=== PATIENT | male | born 1965 | race Caucasian/White ===

== ENCOUNTER → 2022-01-12 11:23 | Outpatient (BNVA) | payer OTHER, SELFPAY | PROVIDERS: PCP Nurse Practitioner Primary Care; Referring Provider Nurse Practitioner Primary Care; Visit Provider Physician Assistant | DX: Z13.89 Encounter for screening for other disorder (principal) ==

== ENCOUNTER 2022-01-12 12:10 | Outpatient (REF) | payer OTHER, SELFPAY ==
[2022-01-12 13:31] LABS: MANUAL DIFF FLAG NO
[2022-01-12 13:38] LABS: Basophils Absolute Auto 0.1 X10*3/uL (0.0-0.2); Basophils Percent Auto 0.7 % (0-2); Eosinophils Absolute Auto 0.6 X10*3/uL (0.0-0.4); Eosinophils Percent Auto 7.1 % (0-4); Hematocrit 47.3 % (42.0-52.0); Hemoglobin 15.3 g/dl (14.0-18.0); Imm Gran Abs Auto 0.03 X10*3/uL (0.00-0.03); Imm Gran Pct Auto 0.3 % (0.0-0.4); Lymphocytes Absolute Auto 2.6 X10*3/uL (1.2-4.9); Lymphocytes Percent Auto 29.9 % (20-40); Mean Corpuscular HGB Conc 32.3 g/dl (31.0-36.0); Mean Corpuscular Hemoglobin 28.6 pg (27.0-33.0); Mean Corpuscular Volume 88.4 fL (80.0-98.0); Mean Platelet Volume 10.4 fL (9.4-12.4); Monocytes Absolute Auto 0.6 X10*3/uL (0.1-1.2); Monocytes Percent Auto 7.4 % (2-11); Neutrophils Absolute Auto 4.7 x10*3/uL (2.0-8.3); Neutrophils Percent Auto 54.6 % (45-73); Platelet Count 228 X10*3/uL (160-400); Red Blood Count 5.35 X10*6/uL (4.60-5.80); Red Cell Distribution Width 12.7 % (11.0-16.0); White Blood Count 8.7 X10*3/uL (4.8-10.8)
[2022-01-12 14:15] LABS: Alanine Aminotransferase 70 U/L (0-40); Alkaline Phosphatase 86 U/L (39-117); Anion Gap 11 (12-20); Aspartate Amino Transferase 39 U/L (5-37); Bilirubin Total 0.3 mg/dL (0.0-1.0); Blood Urea Nitrogen 13 mg/dL (9-16); Calcium 9.2 mg/dL (8.4-10.2); Carbon Dioxide 25 mmol/L (22-29); Chloride 108 mmol/L (96-108); Estimated Glomerular Filt Rate > 60; Glucose Random 122 mg/dL (60-115); Potassium 4.4 mmol/L (3.3-5.1); Sodium 140 mmol/L (135-145); Total Protein 6.9 g/dL (6.5-8.0)
[2022-01-12 14:25] LABS: Thyroid Stimulating Hormone 2.27 uIU/mL (0.32-4.0)
[2022-01-14 18:01] LABS: Transglutaminase IgA <1.0 U/mL
[2022-01-16 14:27] LABS: Endomysial IgA Antibody Negative (Negative)
== END 2022-01-12 12:11 | disposition home or self-care (01) ==
LOC: HO.WFDLDS 12:10
PROVIDERS: Visit Provider Physician Assistant
DX: K62.5 Hemorrhage of anus and rectum (principal); R19.5 Other fecal abnormalities; K52.9 Noninfective gastroenteritis and colitis, unspecified; K59.09 Other constipation; Z98.890 Other specified postprocedural states
CPT/HCPCS: 36415; 80053; 84443; 85025; 86231; 86364

== ENCOUNTER 2022-05-13 11:05 | Day surgery (SDC) | payer OTHER, SELFPAY ==
[2022-05-07 11:41] VITALS: BMI 32.5
[2022-05-10 14:22] VITALS: BMI 33.1
--- NOTE | 2022-05-13 11:31 | P.HPSUR_ITS ---
Pre-Procedural Eval Section A Date of Service: 05/13/22 Section B Chief Complaint: abnormal bowel habit Relevant Family History (Specify if Yes): No Relevant Social History: None Present Medications: see Short Stay Collaborative assessment Medical History: Significant History (Heartburn Hypertension TERRENCE on CPAP Pre- diabetes) History of Previous Operations: Relevant previous surgery/procedure and date(s) (Hx of colonoscopy Hx of mitral valve replacement) Allergies: Allergies Allergy/AdvReac Type Severity Reaction Status Date / Time Penicillins Allergy Unknown Rash Verified 05/10/22 14:22 Review of Systems Sugical H&P ROS: Negative: Constitution, Cardiovascular, Respiratory, Neurological, Psychiatric, Hem-Onc, Allergic/Immunologic, Gastrointestinal, Genitourinary, Musculoskeletal, Integumentary, Endocrine and Eyes/Ears/Nose/Throat Exam Surgical H&P Exam: Normal: HEENT, Normal: Heart, Normal: Lungs, Normal: Extremities, Normal: Abdomen, Normal: Skin and Normal: Neurological Plan Diagnosis/Plan: Unchanged I have reviewed the history and physical and performed a pertinent physical examination on my patient. No changes have occurred unless specified.
[2022-05-13 11:46] VITALS: BP 147/88; PULSE 74; RESP 16; TEMP 36.1; O2SAT 98
[2022-05-13] MEDS: Lactated Ringers 1,000 ML 50 ML IVCONT (11:46)
--- NOTE | 2022-05-13 12:05 | P.CONAN_ITS ---
HPI - Anesthesia Eval Consult details Narrative: 56 M for colonoscopy Aortic valve replaced 7 years ago . optimized as per cardiology TERRENCE on CPAP [facility] Active Problems Active Problems: All Active Problems (Updated 05/10/22 @ 14:21 by Comfort Joe RN) History of colonic polyps (Acute) Change in consistency of stool (Acute) History of colonoscopy (Acute) Rectal bleeding (Acute) Sleep apnea (Acute) Elevated liver enzymes (Acute) Past Medical History Medical History Heartburn Hypertension TERRENCE on CPAP Pre-diabetes Family History Family History Father COPD (chronic obstructive pulmonary disease) Mother COPD (chronic obstructive pulmonary disease) Paternal Grandfather Heart disease Paternal Grandmother Heart disease Family/Other Colon cancer Family history of problems with anesthesia: No Surgical History Surgical History Hx of colonoscopy Hx of mitral valve replacement History of Problems with Anesthesia: No Social History Social History (Updated 01/11/22 @ 11:15 by Korina Lanza) Household Members: Family Alcohol intake: current Alcohol intake frequency: holidays/special occasions only Patient Tobacco Use Status: Never used Tobacco Meds Allergies Allergy/AdvReac Type Severity Reaction Status Date / Time Penicillins Allergy Unknown Rash Verified 05/10/22 14:22 Active Medications: Current Medications Albuterol Sulfate (Albuterol Sulfate (0.083%) 2.5 Mg/3 Ml Vial.Neb) 2.5 mg INHALE ONCE PRN PRN Reason: Shortness of Breath/Wheezing Lactated Ringer's (Lr) 1,000 mls @ 50 mls/hr IVCONT .Q20H JACE Last Admin: 05/13/22 11:46 Dose: 50 mls/hr Home Medications Medication Instructions Recorded Confirmed Last Taken Type amlodipine 10 mg tablet 10 mg PO DAILY 01/12/22 05/10/22 Unknown History aspirin 81 mg tablet,delayed 81 mg PO DAILY 01/12/22 05/13/22 05/12/22 History release (Adult Low Dose Aspirin) metoprolol succinate 100 mg 100 mg PO DAILY 01/12/22 05/10/22 Unknown History tablet,extended release 24 hr Exam Exam Date and Time: May 13, 2022 1205 Height,Weight and Vital Signs: Height 6 ft 3 in Weight 120.202 kg Last Vital Signs Temp 97 F 05/13/22 11:46 Pulse 74 05/13/22 11:46 Resp 16 05/13/22 11:46 BP 147/88 H 05/13/22 11:46 Pulse Ox 98 05/13/22 11:46 O2 Del Method 05/13/22 11:46 Airway Mallampati Class: IV TM Dist: >3cm Neck ROM: Full Loose/Missing/Broken Teeth: Yes Heart: S1,S2 Lungs: b/l breath sounds Assessment and Plan Assessment Anesthesia Assessment: Anesthesia Plan Discussed and Chart Reviewed Final Anesthetic Review Family History of Problems with Anesthesia: No History of Problems with Anesthesia: No NPO: Yes ASA Class: III Final Preanesthetic Review: Meds/Allgs Chart Reviewed, Consent Obtained/Reviewed and Anes Risks/Benef Reviewed Patient Risk: Intermediate Procedure Risk: Intermediate Anesthetic Plan Anesthetic Plan: MAC: Disposition: Standard PACU
--- NOTE | 2022-05-13 13:06 | W.PM.OPN ---
Operative Note Operative Note Date of Service: 05/13/22 Narrative: Operative Information Procedure Description: Colonoscopy Indication: abn bowel habits Anesthesia: MAC COLONOSCOPY Instrument: Olympus variable stiffness adult scope 190L Colonoscopy Monitoring: Vital signs and clinical assessment, continuous EKG monitoring, Pulse oximetry, Carbon Dioxide monitoring and blood pressure monitoring were done throughout the procedure. Colon withdrawal time was 10 minutes. Procedure: The patient was placed in the left lateral decubitis position and pre-procedure medications were administered. After a digital rectal examination of the ano-rectum, the video colonoscope was inserted into the rectum and advanced through the colon to the cecum/TI. The colonoscope was slowly withdrawn in a retrograde panoramic fashion and the colon mucosa was carefully examined including a retroflexed view of the rectum. Findings and interventions are described below. Procedure Difficulty: easy Findings: Terminal Ileum-normal, bx taken random colon bx taken Cecum:normal Ascending Colon: 4-5 mm sessile polyp removed with cold forceps Transverse Colon -normal Descending Colon:normal Sigmoid Colon: mild diverticulosis, 7-8 mm sessile polyp removed with cold snare Rectum: Retroflexion with moderate sized internal hemorrhoids, grade I Anorectum - normal Colon preparation: [place] Bowel Preparation Scale Right colon; 3 Transverse colon: 3 Left colon; 3 (0 = Unprepared colon segment with mucosa not seen due to solid stool that cannot be cleared. 1 = Portion of mucosa of the colon segment seen, but other areas of the colon segment not well seen due to staining, residual stool and/or opaque liquid. 2 = Minor amount of residual staining, small fragments of stool and/or opaque liquid, but mucosa of colon segment seen well. 3 = Entire mucosa of colon segment seen well with no residual staining, small fragments of stool or opaque liquid) Impression and Post Procedure Diagnosis: polyps internal hemorrhoids diverticular disease Plan: High fiber diet leaflet Avoid straining at stool, epsom salts and sitz bath, anusol supps or cream Repeat Colonoscopy in 5-7 years if adenomatous polyps, 10 yrs if hyperplastic or earlier if clinically indicated Above findings were reviewed with the patient and relevant handouts were provided if indicated.
[2022-05-13 13:14] VITALS: BP 134/87; PULSE 74; RESP 16; TEMP 36.1; O2SAT 94
[2022-05-13 13:29] VITALS: BP 131/83; PULSE 70; RESP 16; O2SAT 95
[2022-05-13 13:44] VITALS: BP 121/78; PULSE 62; RESP 16; TEMP 36.1; O2SAT 96
== END 2022-05-13 14:32 | disposition home or self-care (01) ==
PROVIDERS: PCP Internal Medicine Gastroenterology; Visit Provider Internal Medicine Gastroenterology
PROC: 0DJD8ZZ Inspection of Lower Intestinal Tract, Via Natural or Artificial Opening Endoscopic (ICD-10-PCS; CPT 45378; principal; 2022-05-13 12:30)
DX: R19.5 Other fecal abnormalities (principal); Z86.010 Personal history of colon polyps; D12.2 Benign neoplasm of ascending colon; K63.5 Polyp of colon; K57.30 Diverticulosis of large intestine without perforation or abscess without bleeding; K64.0 First degree hemorrhoids; I10 Essential (primary) hypertension; G47.33 Obstructive sleep apnea (adult) (pediatric); Z79.82 Long term (current) use of aspirin; Z79.899 Other long term (current) drug therapy; Z99.89 Dependence on other enabling machines and devices; Z88.0 Allergy status to penicillin; Z95.2 Presence of prosthetic heart valve
CPT/HCPCS: 45385; 45380; 88305; 88342; J2250